=== PATIENT | female | born 1990 | race Caucasian/White ===

== ENCOUNTER 2021-03-13 20:12 | Outpatient (CLI) | payer BC ==
[~2021-03-13 20:12] MED LIST: COLACE 100MG C100 MG PO; HYDROXYZINE HCL50 MG PO; IBUPROFEN600 MG PO; LORTAB 5-325 M1 EACH PO; NORCO 5-325 TA1 EACH PO; PREDNISONE20 MG PO; THERAGRAN M TAB1 EA PO
== END 2021-03-14 12:46 | disposition home or self-care (01) ==
LOC: GENOP 20:12
DX: O47.1 False labor at or after 37 completed weeks of gestation (principal); O36.8130 Decreased fetal movements, third trimester, not applicable or unspecified; O99.283 Endocrine, nutritional and metabolic diseases complicating pregnancy, third trimester; E03.9 Hypothyroidism, unspecified; O99.343 Other mental disorders complicating pregnancy, third trimester; F41.1 Generalized anxiety disorder; Z88.1 Allergy status to other antibiotic agents; Z91.048 Other nonmedicinal substance allergy status; Z3A.37 37 weeks gestation of pregnancy
CPT/HCPCS: 81001; 96360; 96361; J7120

== ENCOUNTER 2021-03-26 22:42 | Inpatient (IN) | payer BC ==
[~2021-03-26] VITALS: Ht 162.6 cm; Wt 91.6 kg
[2021-03-27 01:42] LABS: HEMOGLOBIN 10.9 gm/dl (12.3-15.3); RED BLOOD COUNT 3.49 M/UL (4.00-5.10); WHITE BLOOD COUNT 12.1 K/UL (4.5-11.0)
[2021-03-27] MEDS ORDERED: FLUOXETINE HCL40 MG PO (02:36)
[2021-03-27] MEDS ORDERED: LEVOTHYROXINE25 MCG PO (02:36)
[2021-03-27] MEDS ORDERED: FEROSUL325 MG PO (11:55)
[2021-03-27] MEDS ORDERED: IBUPROFEN600 MG PO (11:55)
[2021-03-27] MEDS ORDERED: HYDROCODONE-AC1 EACH PO (11:55)
[2021-03-27] MEDS ORDERED: DOCUSATE SODIU250 MG PO (11:55)
[2021-03-28 04:31] LABS: HEMOGLOBIN 10.2 gm/dl (12.3-15.3)
== END 2021-03-29 19:05 | disposition home or self-care (01) | DRG 807 ==
LOC: GENOP 22:42 → OB 03-27 00:49
PROVIDERS: ADMIT Obstetrics & Gynecology
PROC: 4A1HXCZ Monitoring of Products of Conception, Cardiac Rate, External Approach (ICD-10-PCS; 2021-03-26)
PROC: 10E0XZZ Delivery of Products of Conception, External Approach (ICD-10-PCS; principal; 2021-03-27)
PROC: 0KQM0ZZ Repair Perineum Muscle, Open Approach (ICD-10-PCS; 2021-03-27)
PROC: 10907ZC Drainage of Amniotic Fluid, Therapeutic from Products of Conception, Via Natural or Artificial Opening (ICD-10-PCS; 2021-03-27)
DX: O70.1 Second degree perineal laceration during delivery (principal); Z37.0 Single live birth; Z3A.39 39 weeks gestation of pregnancy; Z20.822 Contact with and (suspected) exposure to COVID-19; Z90.49 Acquired absence of other specified parts of digestive tract; O99.344 Other mental disorders complicating childbirth; F32.A Depression, unspecified; Z88.1 Allergy status to other antibiotic agents; F41.1 Generalized anxiety disorder; Z98.891 History of uterine scar from previous surgery; O99.214 Obesity complicating childbirth; E66.9 Obesity, unspecified; Z82.49 Family history of ischemic heart disease and other diseases of the circulatory system; Z80.9 Family history of malignant neoplasm, unspecified; Z81.8 Family history of other mental and behavioral disorders; Z82.0 Family history of epilepsy and other diseases of the nervous system; Z83.79 Family history of other diseases of the digestive system; Z83.6 Family history of other diseases of the respiratory system; Z98.890 Other specified postprocedural states; Z88.0 Allergy status to penicillin; Z88.8 Allergy status to other drugs, medicaments and biological substances
CPT/HCPCS: 36415; 81001; 85014; 85018; 85025; J2590; J7120; U0002